=== PATIENT | male | born 1940 | race Hispanic/Latino ===

== ENCOUNTER → 2018-04-30 | Outpatient (CLI) | payer OTHER, MEDICARE ==
[~2018-04-30] MED LIST: GADODIAMIDE 5 MMOL/10 ML VIAL 5 MMOL/10 ML ML IV ONE
== END | disposition home or self-care (01) ==
LOC: RAH 08:21
PROVIDERS: ATTEND Family Medicine
DX: M47.896 Other spondylosis, lumbar region (principal); M48.07 Spinal stenosis, lumbosacral region; M51.36 Other intervertebral disc degeneration, lumbar region
CPT/HCPCS: 72158; A9579

== ENCOUNTER 2019-12-08 00:24 | Observation (INO) | payer OTHER, MEDICARE ==
[~2019-12-08] VITALS: Ht 160 cm; Wt 94.2 kg
[2019-12-08] MEDS ORDERED: DiphenhydrAMINE HCL 50 MG/ML VIAL ONE (00:45)
[2019-12-08] MEDS ORDERED: FAMOTIDINE/PF 20 MG/2 ML VIAL IV ONE (00:46)
[2019-12-08 01:13] LABS: BASOPHILS % (AUTO) 0.4 % (0.0-5.0); EOSINOPHILS % (AUTO) 1.7 % (0.0-8.0); HEMATOCRIT 35.6 % (42-54); LYMPHOCYTES % (AUTO) 27.5 % (21.0-51.0); MEAN CORPUSCULAR HEMOGLOBIN 27.3 pg (27.0-33.0); MEAN CORPUSCULAR HGB CONC 31.2 g/dL (32.0-36.0); MEAN CORPUSCULAR VOLUME 87.5 fL (79-99); MONOCYTES % (AUTO) 7.9 % (3.0-13.0); NEUTROPHILS % (AUTO) 62.1 % (40.0-77.0); PLATELET COUNT (AUTO) 284 K/uL (130-400); RED BLOOD CELL COUNT(AUTO) 4.07 MIL/uL (4.50-6.20); RED CELL DISTRIBUTION WIDTH 14.3 % (11.0-15.5); WHITE BLOOD COUNT (AUTO) 7.1 K/uL (4.8-10.8)
[2019-12-08 01:34] LABS: CREATININE 1.6 mg/dL (0.5-1.5); POTASSIUM 3.8 mmol/L (3.5-5.1)
[2019-12-08 01:39] LABS: ALBUMIN 3.5 g/dL (3.5-5.0); BILIRUBIN,TOTAL 0.4 mg/dL (0.2-1.0)
[2019-12-08] MEDS ORDERED: METHYLPREDNISOLONE SOD SUCC 125MG/2ML VIAL ONE (03:20)
[2019-12-08 04:45] VITALS: BP 140/84
--- NOTE | 2019-12-08 04:45 | NUR ---
ADMIT PT ADMITTED TO ROOM 319, AAOX3. NOTED SWELLING TO FACE INCLUDING HIS EARS. HOARSE VOICE WITH OCCASIONAL DRY COUGH. ADMISSION CARE DONE. ADMISSION DATA BASE COMPLETED. PLACED IN BED COMFORTABLY. ORIENTED TO ROOM AND UNIT. PT REFUSED ERNI RAMIREZ TO BE PLACED ON BLE. CALL LIGHT WITHIN REACH. IN FOR MORE CARE AND MANAGEMENT. Addendum: 12/08/19 at 0511 by RAO BUENROSTRO RN RN Amended: Links added.
[2019-12-08] MEDS ORDERED: SODIUM CHLORIDE 0.9% 1000ML 1,000 ML IV SCH (05:00)
[2019-12-08] MEDS ORDERED: OMEP40CA13 PO (05:28)
[2019-12-08] MEDS ORDERED: LOSA1TAB42 PO (05:28)
[2019-12-08] MEDS ORDERED: GABA300S PO (05:28)
[2019-12-08] MEDS ORDERED: ATOR40TA71 PO (05:28)
[2019-12-08] MEDS ORDERED: CELE200C PO (05:28)
[2019-12-08] MEDS ORDERED: CARV12.511 PO (05:28)
[2019-12-08] MEDS ORDERED: METF100P3 MC (05:28)
--- NOTE | 2019-12-08 06:36 | NUR ---
CALL NO ORDER FOR DIET ON ADMISSION. TRIED TO CALL DR LOWRY WITH SEVERAL NUMBERS BUT UNABLE TO CONNECT. ENDORSING TO AM SHIFT FOR MORE CARE AND MANAGEMENT.
[2019-12-08 06:53] LABS: BASOPHILS % (AUTO) 0.3 % (0.0-5.0); EOSINOPHILS % (AUTO) 0.6 % (0.0-8.0); HEMATOCRIT 34.7 % (42-54); LYMPHOCYTES % (AUTO) 14.2 % (21.0-51.0); MEAN CORPUSCULAR HEMOGLOBIN 27.4 pg (27.0-33.0); MEAN CORPUSCULAR HGB CONC 31.1 g/dL (32.0-36.0); MEAN CORPUSCULAR VOLUME 88.1 fL (79-99); MONOCYTES % (AUTO) 1.9 % (3.0-13.0); NEUTROPHILS % (AUTO) 82.7 % (40.0-77.0); PLATELET COUNT (AUTO) 253 K/uL (130-400); RED BLOOD CELL COUNT(AUTO) 3.94 MIL/uL (4.50-6.20); RED CELL DISTRIBUTION WIDTH 14.3 % (11.0-15.5); WHITE BLOOD COUNT (AUTO) 6.4 K/uL (4.8-10.8)
[2019-12-08 07:08] LABS: CREATININE 1.6 mg/dL (0.5-1.5); POTASSIUM 4.2 mmol/L (3.5-5.1)
[2019-12-08 07:30] VITALS: BP 111/56
[2019-12-08] MEDS ORDERED: FAMOTIDINE 20MG TAB 20 MG TAB PO SCH (09:00)
[2019-12-08 11:00] VITALS: BP 140/79
--- NOTE | 2019-12-08 13:56 | NUR ---
DCP HOME- DAUGHTER TO PROVIDE TRANSPORT JOSÉ AT [phone] [facility] [employer] FAXED FOR UPDATE. PATIENT ANXIOUS TO BE DISCHARGED. PATIENT LIVES WITH SPOUSE [place], IS INDEPENDENT, HAS NO DME, DRIVES, HOME SAFE AND ACCESSIBLE, FOLLOW WITH DR. LAMONT ADAN, HAS SUPPORTIVE FAMILY. HERE FOR ALLERGIC REACTION, EXPECTING DC THIS AFTERNOON Addendum: 12/08/19 at 1404 by RUBIO BUENROSTRO RN Amended: Links added.
--- NOTE | 2019-12-08 15:36 | NUR ---
DISCHARGE PATIENT GIVEN DISCHARGE INSTRUCTIONS VIA TEACH BACK. 20G PIV TO RAC DISCONTINUED, TIP INTACT. PATIENT TO FOLLOW UP WITH DR. ADAN IN 3 TO 5 DAYS. PATIENT/DAUGHTER CARLO INSTRUCTED TO SEEK EMS IF FACIAL SWELLING REOCCURS OR WORSENS. VOICED UNDERSTANDING. PATIENT STABLE AT THIS TIME AND WHEELED TO [facility] DISCHARGE BY GORAN KUMAR.
== END 2019-12-08 16:00 | disposition home or self-care (01) ==
LOC: EDH 00:24 → EDHIP 03:34 → 3CH 04:32
PROVIDERS: ADMIT Internal Medicine; ATTEND Internal Medicine
DX: T78.3XXA Angioneurotic edema, initial encounter (principal); I10 Essential (primary) hypertension; E78.5 Hyperlipidemia, unspecified; E11.9 Type 2 diabetes mellitus without complications; M19.90 Unspecified osteoarthritis, unspecified site; Z87.442 Personal history of urinary calculi; Z90.49 Acquired absence of other specified parts of digestive tract; Z79.82 Long term (current) use of aspirin; Z79.899 Other long term (current) drug therapy; Z88.6 Allergy status to analgesic agent; X58.XXXA Exposure to other specified factors, initial encounter; Y93.89 Activity, other specified; Y92.89 Other specified places as the place of occurrence of the external cause
CPT/HCPCS: 36415; 80048; 80053; 82948 ×2; 85025 ×2; 99284; G0378 ×12; J1200; J2930; J3490; J7030

== ENCOUNTER → 2020-12-27 | Outpatient (CLI) | payer OTHER, MEDICARE ==
[~2020-12-27] MED LIST changes: +ATOR40TA71 PO; +CARV12.511 PO; +CELE200C PO; +GABA300S PO; -GADODIAMIDE 5 MMOL/10 ML VIAL 5 MMOL/10 ML ML IV ONE; +LOSA1TAB42 PO; +METF100P3 MC; +OMEP40CA21 PO
== END | disposition home or self-care (01) ==
LOC: RAH 10:27
PROVIDERS: ATTEND Otolaryngology Plastic Surgery within the Head & Neck
DX: K21.9 Gastro-esophageal reflux disease without esophagitis (principal); R13.10 Dysphagia, unspecified; R49.9 Unspecified voice and resonance disorder
CPT/HCPCS: 74230; 92611

== ENCOUNTER 2024-11-08 05:36 | Day surgery (SDC) | payer MEDICARE ==
[2024-11-08] VITALS (10 sets, daily range): BP systolic 118–144; BP diastolic 64–81; PULSE 57–75; RESP 14–17; TEMP 97.4–97.6
[~2024-11-08] VITALS: Ht 160 cm; Wt 83.5 kg
[~2024-11-08 05:36] MED LIST changes: -ATOR40TA71 PO; -CARV12.511 PO; -CELE200C PO; -GABA300S PO; +METF-527 PO; -METF100P3 MC; +OMEP20CA12 PO; -OMEP40CA21 PO; +TAMS-55 PO
[2024-11-08] MEDS: 0.9%NACL 1000ML 1,000 ML IV ONE (06:29)
[2024-11-08] MEDS ORDERED: proPOFol 10 MG/ML 20ML VIAL IV ONE (07:18)
[2024-11-08] MEDS ORDERED: LIDOCAINE HCL 1% 20 ML VIAL ONE (07:18)
== END 2024-11-08 08:57 | disposition home or self-care (01) ==
LOC: ENDO 05:36 → DAH 05:36 → ENDO 08:57
PROVIDERS: ATTEND Internal Medicine Gastroenterology
DX: Z12.11 Encounter for screening for malignant neoplasm of colon (principal); D12.3 Benign neoplasm of transverse colon; R19.5 Other fecal abnormalities; K29.70 Gastritis, unspecified, without bleeding; K22.9 Disease of esophagus, unspecified; K22.89 Other specified disease of esophagus; K57.30 Diverticulosis of large intestine without perforation or abscess without bleeding; E78.5 Hyperlipidemia, unspecified; I42.9 Cardiomyopathy, unspecified; R63.4 Abnormal weight loss; I10 Essential (primary) hypertension; K21.9 Gastro-esophageal reflux disease without esophagitis; K44.9 Diaphragmatic hernia without obstruction or gangrene; J44.9 Chronic obstructive pulmonary disease, unspecified; M19.90 Unspecified osteoarthritis, unspecified site; E11.9 Type 2 diabetes mellitus without complications; Z79.899 Other long term (current) drug therapy; Z79.84 Long term (current) use of oral hypoglycemic drugs; Z86.2 Personal history of diseases of the blood and blood-forming organs and certain disorders involving the immune mechanism; Z98.890 Other specified postprocedural states; Z90.49 Acquired absence of other specified parts of digestive tract; Z87.891 Personal history of nicotine dependence; Z88.8 Allergy status to other drugs, medicaments and biological substances
CPT/HCPCS: 45380; 43239; J7030; J2704; A4620; A4215; A4223; A4222; J3490

== ENCOUNTER → 2024-11-25 | Outpatient (CLI) | payer MEDICARE, MEDICAID ==
[~2024-11-25] MED LIST changes: +IOHEXOL-350 75 ML VIAL IV ONE
--- NOTE | 2024-11-25 13:02 | HMCIMG ---
Exam Type: CT ABDOMEN/PELVIS W/CONTRAST Clinical Information: ABNORMAL WT LOSS. Comparison: None Contrast: 100 cc's Isovue 370 IV, no complications or adverse reactions CT Dose Index (CTDI): 31.60 mGy Dose Length Product (DLP): 1740.80 total mGy-cm Findings: No evidence of nephro or ureterolithiasis is found. No hydronephrosis or ureteral dilatation is seen. The lung bases are clear. The stomach is unremarkable. It shows no wall thickening. No gross ulceration is seen. It is not overly distended. There are no surrounding inflammatory changes. No wall lesions are identified to suggest cancer. The spleen is unremarkable. It is not enlarged. The pancreas shows normal anatomy. It is not fatty replaced. It shows no lesions. The pancreatic duct is not dilated. The gallbladder is surgically absent. The adrenal glands are unremarkable. There is no enlargement. No lesions are noted. The liver is unremarkable. It shows no focal masses. The appendix is unremarkable. It shows no evidence of inflammation. No appendicolith is seen. The small bowel is unremarkable. There is no evidence of dilatation to suggest obstruction. No evidence of adynamic ileus is seen. There is no small bowel wall thickening to suggest enteritis. The colon is unremarkable. The urinary bladder is unremarkable. There is no wall thickening to suggest tumor or inflammation. There are no intraluminal calculi. There are no diverticula. There is no evidence of chronic bladder outlet obstruction. There is no evidence of urinary bladder distention to suggest urinary retention. Prostate is enlarged. The bony and vascular structures are unremarkable for the patient's age. IMPRESSION: Enlarged prostate. Otherwise unremarkable. No evidence of malignancy elsewhere at this time. This study was performed using dose reduction techniques to include automated exposure control and/or adjustment of the mA and/or kV according to patient size.
== END | disposition home or self-care (01) ==
LOC: RAH 10:12
PROVIDERS: ATTEND Internal Medicine Gastroenterology
DX: N40.0 Benign prostatic hyperplasia without lower urinary tract symptoms (principal); R63.4 Abnormal weight loss
CPT/HCPCS: 74177; Q9967